=== PATIENT | male | born 1990 ===

== ENCOUNTER 2017-08-07 11:05 | Emergency (ER) | payer SELFPAY ==
--- NOTE | 2017-08-07 11:17 | ER Report ---
History and Physical Time Seen By MD: 11:13 Hx. of Stated Complaint: PATIENT FELL OUT OF THE TOP BUNK IN SEMI SLEE[employer] CAR HPI/ROS CHIEF COMPLAINT: Right shoulder pain HISTORY OF PRESENT ILLNESS: Otherwise of the 27-year-old male comes emergency Department today with complaint of right shoulder pain patient was in a truck reached up to the top and felt his shoulder dislocate. Patient has had dislocations of that shoulder one time in the past pain to the right shoulder no other trauma noted pain with an elevation extension or rotation REVIEW OF SYSTEMS: Respiratory: No cough, no dyspnea. Cardiovascular: No chest pain, no palpitations. Gastrointestinal: No vomiting, no abdominal pain. Musculoskeletal: Right shoulder pain Remainder of the 14 system rev: Yes Allergies: Coded Allergies: No Known Drug Allergies (Unverified , 08/07/17) Home Meds No Active Prescriptions or Reported Meds Reviewed Nurses Notes: Yes Old Medical Records Reviewed: Yes Hx Substance Use Disorder: No Hx Alcohol Use: No Constitutional Vital Sign - Last 24 Hours 08/07/17 08/07/17 08/07/17 08/07/17 11:07 11:07 11:10 11:15 Temp 98.5 Pulse 83 75 85 Resp 20 B/P (MAP) 143/75 143/75 (97) Pulse Ox 96 98 99 O2 Delivery Room Air 08/07/17 08/07/17 08/07/17 08/07/17 11:20 11:25 11:30 11:35 Pulse 88 79 69 72 B/P (MAP) 135/98 (110) Pulse Ox 98 94 94 100 08/07/17 08/07/17 08/07/17 08/07/17 11:40 11:45 11:48 11:50 Pulse 70 77 Resp 13 10 14 B/P (MAP) 132/92 (105) 122/72 (89) 117/69 (85) Pulse Ox 100 93 89 08/07/17 08/07/17 08/07/17 08/07/17 11:55 11:57 11:59 12:00 Pulse 85 70 Resp 20 7 B/P (MAP) 131/69 (89) 129/83 (98) 124/90 (101) Pulse Ox 95 97 08/07/17 12:05 Pulse 74 B/P (MAP) 122/78 (93) Pulse Ox 92 Physical Exam General Appearance: The patient is alert, has no immediate need for airway protection and no current signs of toxicity. [ ] Eyes: Pupils equal and round no injection. Respiratory: Chest is non tender, lungs are clear to auscultation. Cardiac: regular rate and rhythm [ ] Gastrointestinal: Abdomen is soft and non tender, no masses, bowel sounds normal. Musculoskeletal: Right shoulder examination patient is an obvious depression at the before meals joint patient with a clear dislocation most likely anterior patient neurovascular intact range of motion limited by the dislocation pain with abduction and abduction and extension Neck is supple and non tender. Extremities have full range of motion and are non tender other than stated above. Skin: No rashes or lesions. [ ] DIFFERENTIAL DIAGNOSIS: After history and physical exam differential diagnosis was considered for right shoulder dislocation versus fracture Medical Decision Making ED Course/Re-evaluation ED Course ED clinical course medical decision making procedure note Moderate conscious sedation with propofol patient had a right shoulder reduction done with traction countertraction Propofol was administered total of 8 mL cc of propofol tilling 80 mg was administered with good twilight sedation patient tolerated well awoke without any issue on constant monitoring oxygenation and cardiac monitoring shoulder reduction with splint placed Patient be discharged with orthopedic follow-up diagnosis shoulder dislocation Decision to Disposition Date: Aug 07, 2017 Decision to Disposition Time: 12:19 Depart Departure Latest Vital Signs Vital Signs Date Time Temp Pulse Resp B/P (MAP) Pulse Ox O2 Delivery O2 Flow Rate FiO2 08/07/17 12:05 74 122/78 (93) 92 08/07/17 12:00 7 08/07/17 11:07 98.5 Room Air Impression: Primary Impression: Shoulder dislocation Condition: Improved Disposition: HOME OR SELF-CARE Referrals: ERI CUI MD 5 Days New Scripts No Active Prescriptions or Reported Meds Patient Instructions: Shoulder Dislocation (DC) MARIPOSA FLORES MD Aug 07, 2017 11:17
[2017-08-07] MEDS ORDERED: fentaNYL CITR 100 MCG/2 ML AMP IVP ONE (11:20)
[2017-08-07] MEDS ORDERED: PROPOFOL(*)1000 MG/100 ML VIAL 100 ML IV PRN (11:35)
--- NOTE | 2017-08-07 12:08 | RADIOLOGY IMAGING REPORT ---
FACILITY: [facility] - [place] PATIENT NAME: Michelle Stuart : 1990 MR: [id number] V: [id number] EXAM DATE: ORDERING PHYSICIAN: MARIPOSA FLORES TECHNOLOGIST: Location: [facility] Patient: Michelle Stuart : 1990 Visit/Account:[id number] Date of Sevice: 08/07/2017 INDICATION: possible dislocation. DATE: 08/07/2017 12:01 PM. TECHNIQUE: SHOULDER MIN 2 VIEWS RIGHT COMPARISON: None FINDINGS: The humeral head is dislocated anteroinferiorly. A fracture is not conspicuous. No widening at the AC joint or coracoclavicular interval. IMPRESSION: Anteroinferior dislocation of the humeral head. Report Dictated By: Michelet Pruitt MD at 08/07/2017 12:01 PM Report E-Signed By: Michelet Pruitt MD at 08/07/2017 12:05 PM WSN:[id number]
[2017-08-07 12:20] VITALS: BP 121/69
--- NOTE | 2017-08-07 12:34 | RADIOLOGY IMAGING REPORT ---
[place] [facility] [place] NAME: Michelle Stuart : 1990 MR: [id number] V: [id number] EXAM DATE: ORDERING PHYSICIAN: MARIPOSA FLORES TECHNOLOGIST: Location: [facility] Patient: Michelle Stuart : 1990 Visit/Account:[id number] Date of Sevice: 08/07/2017 INDICATION: dislocation. DATE: 08/07/2017 12:28 PM. TECHNIQUE: SHOULDER MIN 2 VIEWS RIGHT COMPARISON: Prereduction radiograph FINDINGS: The humeral head has been relocated. IMPRESSION: Successful reduction. Report Dictated By: Michelet Pruitt MD at 08/07/2017 12:28 PM Report E-Signed By: Michelet Pruitt MD at 08/07/2017 12:29 PM WSN:[id number]
== END 2017-08-07 12:48 | disposition home or self-care (01) ==
LOC: ER 11:13
DX: S43.004A Unspecified dislocation of right shoulder joint, initial encounter (principal)
CPT/HCPCS: 23650; 73030; 96374; 99152; 99284; A4565; J2704; J3010